=== PATIENT | male | born 1995 | race Caucasian/White ===

== ENCOUNTER 2016-09-17 07:28 | Emergency (ER) | payer OTHER ==
[~2016-09-17] VITALS: Ht 170.2 cm; Wt 73.2 kg
[2016-09-17] MEDS ORDERED: ACETAMINOPHEN TAB 650MG DOSE (2X325MG) PO ONE (08:15)
[2016-09-17 10:06] VITALS: BP 130/82
--- NOTE | 2016-09-17 10:06 | REP ---
LEFT KNEE, FIVE VIEWS: HISTORY: Trauma. There is no acute fracture or dislocation. The joint spaces are normal in appearance. IMPRESSION: There is no acute fracture or dislocation. Signed by Jose Cruz Ware MD 09/17/2016 10:12 A
== END 2016-09-17 10:12 | disposition home or self-care (01) ==
LOC: M ED 07:28
DX: S60.512A Abrasion of left hand, initial encounter (principal); S60.511A Abrasion of right hand, initial encounter; S80.212A Abrasion, left knee, initial encounter; S50.312A Abrasion of left elbow, initial encounter; V19.3XXA Pedal cyclist (driver) (passenger) injured in unspecified nontraffic accident, initial encounter; Y92.410 Unspecified street and highway as the place of occurrence of the external cause; Y93.55 Activity, bike riding